=== PATIENT | male | born 1950 | race Caucasian/White ===

== ENCOUNTER → 2020-07-23 13:09 | Outpatient (CLI) | payer MEDICARE, OTHER, SELFPAY ==
[2020-07-24 14:16] LABS: COVID19 Sendout Not Detected (Not Detect)
== END ==
PROVIDERS: Visit Provider Physician Assistant
DX: Z11.59 Encounter for screening for other viral diseases (principal)
CPT/HCPCS: 87635

== ENCOUNTER → 2020-07-26 10:41 | Outpatient (CLI) | payer MEDICARE, OTHER, SELFPAY ==
--- NOTE | 2020-07-29 14:12 | DI.NM.S_ITS ---
ORDERING PROVIDER: Guanakiot Brian MD PROCEDURE PERFORMED: Exercise treadmill stress and rest myocardial perfusion imaging study with gating to assess ejection fraction and regional wall motion. DATE OF STUDY: 07/26/2020 INDICATIONS: The patient is a 70-year-old male status post myocardial infarction and stenting. EXERCISE TREADMILL TESTING: The patient was able to exercise for 7 minutes 13 seconds on a standard Edgar protocol suggesting good exercise capacity with an ABDIFATAH of -6%. He had a normal heart rate response, achieving a maximum heart rate of 152 BPM (103% of his predicted maximum). His resting blood pressure was 160/100 with a hypertensive blood pressure response to exercise achieving a peak blood pressure of 240/110. He had no chest discomfort and had moderate exertional dyspnea. His resting ECG shows sinus rhythm with a left anterior fascicular block and incomplete right bundle branch block, but relatively normal ST segments. There were no appreciable ST-segment shifts or arrhythmias with exercise. At 6 minutes 21 seconds of exercise, at a heart rate of 144 BPM, 26.6 millicuries of technetium-99m Myoview was injected and the patient was imaged 15 minutes later using a gated SPECT acquisition protocol. He returned three days later and was reinjected with an additional 25.8 millicuries of technetium-99m Myoview and was imaged 30 minutes later, again using a gated SPECT acquisition protocol. FINDINGS: RAW DATA: There is fair myocardial tracer uptake on the stress images and suboptimal tracer uptake on the resting images in part due to some infiltration of the IV. Yet, I think adequate data has been obtained. The lung/heart ratio is at the upper limits of normal at 0.41 with a normal TID ratio 1.06. QUANTITATED GATED SPECT: Post-stress ejection fraction is estimated at 46%, although visually is likely in the 30-40% range with moderate global hypokinesis. It appears to be worse in the mid and distal anterior wall extending to the apex. The resting gated images are suboptimal quality to allow analysis. The post-stress end-diastolic volume is moderately elevated at 189 mL. MYOCARDIAL PERFUSION SCAN: Post-stress supine images show a severe perfusion defect involving the mid and distal anterior wall, extending to and including the apex. There is mildly reduced tracer activity in the interventricular septum and inferior wall, although these improve on the prone images while the mid to distal anterior defect remains present. This would suggest the inferior defect is most likely attenuation artifact and the anterior defect is not. The resting images continued to show a severe perfusion defect in the mid to distal anterior wall without any clear areas of improvement. IMPRESSION: 1. Abnormal nuclear myocardial perfusion study. 2. Moderate-sized fixed perfusion defect of the mid and distal anterior wall and apex consistent with a transmural infarction in the LAD distribution. There is no evidence for significant myocardial ischemia. 3. Moderately reduced left ventricular systolic function with global hypokinesis and more severe hypokinesis in the mid to distal anterior wall and apex, and moderately increased left ventricular volumes. 3. Good exercise capacity without angina or ECG evidence of ischemia. Nehemias Herrera - KRUNAL/[facility] doc#: [id number]/job#: [id number] dd: 07/29/2020 12:36:00 dt: 07/29/2020 13:55:00 DICTATING /COPIES TO: Amadou Hinojosa MD COPIES MNE: ANISHA;
== END ==
PROVIDERS: PCP Physician Assistant; Referring Provider Physician Assistant; Visit Provider Internal Medicine Interventional Cardiology
DX: I25.2 Old myocardial infarction (principal); Z95.5 Presence of coronary angioplasty implant and graft
CPT/HCPCS: 78452; 93017; A9502

== ENCOUNTER → 2020-07-29 08:48 | Outpatient (CLI) | payer MEDICARE, OTHER, SELFPAY ==
--- NOTE | 2020-07-29 | DI.ECHO.S_ITS ---
[facility]---------+ [facility] +---------+ : : [address] : [place] : : : : [id number] : : : : Phone: [phone]---------+ Echocardiogram Report + + :Name: LUIS ESPOSITO Study Date: 07/29/2020 Height: 69 in : :[facility] Weight: 231 lb : : Gender: Male BSA: 2.2 m2 : :: 1950 Age: 70 yrs BP: 154/95 mmHg: :Ordering Physician: : :CELIA VAZQUEZ Performed By: Minerva Ellis : :Referring: CELIA ESCAMILLA : + + Interpretation Summary Normal left ventricle size with ejection fraction 35-40%. Old anterior infarct. Grade I diastolic dysfunction. Mild mitral regurgitation. Mildly enlarged ascending aorta. Procedure: A two-dimensional transthoracic echocardiogram with color flow and Doppler was performed. The study quality was technically adequate. There is no prior echocardiogram noted for this patient. Left Ventricle: The left ventricle is normal in size and wall thickness. The ejection fraction is estimated to be 35-40%. There is anterior wall akinesis. There are no other obvious focal wall motion abnormalities. Diastolic parameters suggest a relaxation abnormality of the left ventricle, consistent with probable normal filling pressures. Right Ventricle: The right ventricle is normal in size and function. Atria: The left atrial size is normal. Right atrial size is normal. There is no Doppler evidence for an interatrial shunt. Mitral Valve: The mitral valve is normal in structure and function. There is mild mitral regurgitation. Aortic Valve: The aortic valve is not well visualized. The aortic valve is grossly normal. The aortic valve opens well. There is no aortic valve stenosis. No aortic regurgitation is present. Tricuspid Valve: The tricuspid valve is normal in structure and function. There is trace tricuspid regurgitation. Pulmonic Valve: The pulmonic valve is not well seen, but is grossly normal. There is no pulmonic valvular regurgitation. Great Vessels: The aortic root is borderline dilated. The ascending aorta is mildly enlarged. The IVC is of normal diameter and collapses greater than 50% with a sniff. This suggests a low right atrial pressure of 3 mm Hg. Pericardium/ Pleura There is no pericardial effusion. There is no pleural effusion. MMode/2D Measurements & Calculations LVIDd: 5.6 cm LVOT diam: 2.2 cm LVIDs: 4.7 cm Ao root diam: 4.0 cm FS: 16.1 % asc Aorta Diam: 3.6 cm EPSS: 1.4 cm Ao Arch Diam (Prox Trans): 2.5 cm IVSd: 0.81 cm LVPWd: 0.99 cm LV siddiqui. diameter/BSA (cm/m^2): 2.5 LV sys. diameter/BSA (cm/m^2): 2.1 LA A2 area: 19.1 cm2 RA long axis: 4.4 cm LA A4 area: 18.3 cm2 RA area: 15.4 cm2 LA length (vol): 5.4 cm RA vol: 46.1 ml LA vol: 54.8 ml RA : 21.0 ml/m2 LA vol index: 24.9 ml/m2 IVC diam: 1.3 cm RVD1 (basal): 3.5 cm TAPSE: 1.8 cm Doppler Measurements & Calculations Ao V2 max: 106.5 cm/sec LVOT Max Epifanio: 97.0 cm/sec Ao V2 mean: 75.6 cm/sec LV V1 max P.8 mmHg Ao max P.5 mmHg LV V1 VTI: 20.5 cm Ao mean P.5 mmHg KEN(I,D): 3.3 cm2 Ao V2 VTI: 24.2 cm KEN(V,D): 3.6 cm2 sev ratio: 0.85 KEN indexed to BSA (cm^2/m^2): 1.5 MV E max epifanio: 76.5 cm/sec TR max epifanio: 263.7 cm/sec MV A max epifanio: 100.8 cm/sec TR max P.8 mmHg MV E/A: 0.76 PA V2 max: 65.0 cm/sec Med Peak E' Epifanio: 4.7 cm/sec PA V2 mean: 48.6 cm/sec E/E' med: 16.1 PA mean P.0 mmHg Lat Peak E' Epifanio: 7.8 cm/sec PA pr(Accel): 10.5 mmHg E/E' lat: 9.8 E/e' average: 13.0 MV dec time: 0.17 sec SV(LVOT): 80.2 ml Electronically signed by: Celia Kumari on Reading Physician:07/29/2020 04:47 PM
== END ==
PROVIDERS: PCP Physician Assistant; Referring Provider Physician Assistant; Visit Provider Internal Medicine Interventional Cardiology
DX: I34.0 Nonrheumatic mitral (valve) insufficiency (principal); I77.89 Other specified disorders of arteries and arterioles; I25.10 Atherosclerotic heart disease of native coronary artery without angina pectoris; Z95.5 Presence of coronary angioplasty implant and graft
CPT/HCPCS: 93306